=== PATIENT | female | born 1985 | race Caucasian/White ===

== ENCOUNTER → 2018-05-18 | Outpatient (CLI) | payer SELFPAY ==
--- NOTE | 2018-05-18 15:13 | RADIOLOGY REPORT (SQ) ---
EXAM DESCRIPTION: U/S [id number] TRNABD 1GES W/ODOP COMPLETED DATE/TIME: 05/18/2018 2:42 pm REASON FOR STUDY: Z34.81 ENCOUNTER FOR SUPRVSN OF NORMAL , FIRST TRIMESTER Z34.81 ENCOUNTE R FOR SUPRVSN OF NORMAL , FIRST TRIM COMPARISON: None. TECHNIQUE: Transabdominal static and realtime grayscale images acquired of the pelvis. Additional se lected spectral and color Doppler images recorded. All images stored on PACs. bHCG: Not available LIMITATIONS: None. FINDINGS: FETUS: Living intrauterine . ULTRASOUND EGA: 8 weeks 3 days ULTRASOUND JEET: 12/25/2018 CRL: Visualized FHR: 173 beats per minute. SUBCHORIONIC BLEED: No SIZE OF BLEED: Not applicable. UTERUS: No masses. No anomalies. CERVICAL LENGTH: 4.8 cm Closed. RIGHT ADNEXA: Normal ovary with normal vascular flow. Small cyst is identified measuring 1.3 x 1.6 x 1.9 cm in diameters most consistent with a corpus lutein cysts. No adnexal free fluid. No adnexal masses. LEFT ADNEXA: Normal ovary with normal vascular flow. No adnexal free fluid. No adnexal masses. FREE FLUID: None. OTHER: No other significant finding. IMPRESSION: LIVING INTRAUTERINE . EGA 8 weeks 3 days Trimester of : First - 0 to 13 weeks. TECHNICAL DOCUMENTATION: JOB ID: [id number] [employer]- All Rights Reserved rev-03/24 Reading location - IP/workstation name: [email or web address]
== END ==
LOC: RAD 15:46
PROVIDERS: ATTEND Nurse Practitioner Women's Health
DX: O34.81 Maternal care for other abnormalities of pelvic organs, first trimester (principal); N83.11 Corpus luteum cyst of right ovary; Z3A.08 8 weeks gestation of pregnancy
CPT/HCPCS: 76801

== ENCOUNTER 2018-12-14 04:49 | Inpatient (IN) | payer MEDICAID ==
[~2018-12-14 04:49] MED LIST: PHENYLEPHRINE HCL INJ/PF 10 MG/1 ML SDV ONE
[2018-12-14 05:30] LABS: APPEARANCE,URINE CLOUDY; BILIRUBIN,URINE NEGATIVE (NEGATIVE); COLOR,URINE YELLOW; GLUCOSE, URINE NEGATIVE (NEGATIVE); KETONES,URINE NEGATIVE (NEGATIVE); LEUKOCYTE ESTERASE,URINE NEGATIVE (NEGATIVE); NITRITE,URINE NEGATIVE (NEGATIVE); PROTEIN,URINE 30 mg/dL (NEGATIVE); URINE SPECIFIC GRAVITY 1.012; UROBILINOGEN,URINE NEGATIVE mg/dL (<2.0)
[2018-12-14] MEDS ORDERED: RINGERS SOLUTION,LACTATED 1,000 ML IV PRN ×2 (05:43→07:05)
[2018-12-14 05:54] LABS: URINE AMPHETAMINES SCREEN NEGATIVE; URINE BARBITURATES SCREEN NEGATIVE; URINE BENZODIAZEPINES SCREEN NEGATIVE; URINE COCAINE SCREEN NEGATIVE; URINE MARIJUANA (THC) SCREEN NEGATIVE; URINE METHADONE SCREEN NEGATIVE; URINE PHENCYCLIDINE SCREEN NEGATIVE
[2018-12-14] MEDS ORDERED: AZITHROMYCIN INJ 500 MG VIAL IV ONE ×2 (06:11→06:40)
[2018-12-14] MEDS ORDERED: CITRIC ACID/SODIUM CITRATE ORAL SOLN 15 ML UDCUP PO PRN (06:12)
[2018-12-14 06:27] LABS: ABSOLUTE EOSINOPHILS # (AUTO) 0.1 10^3/uL (0.0-0.6); ABSOLUTE LYMPHOCYTES (AUTO) 2.1 10^3/uL (0.5-4.7); ABSOLUTE MONOCYTES (AUTO) 0.8 10^3/uL (0.1-1.4); ABSOLUTE NEUT (AUTO) 4.7 10^3/uL (1.7-8.2); BASOPHILS % (AUTO) 0.4 % (0-2); EOSINOPHILS % (AUTO) 1.2 % (0-6); HEMATOCRIT 34.2 % (36.0-47.0); HEMOGLOBIN 11.8 g/dL (12.0-15.5); LYMPHOCYTES % (AUTO) 27.2 % (13-45); MEAN CORPUSCULAR HEMOGLOBIN 29.7 pg (27.0-33.4); MEAN CORPUSCULAR HGB CONC 34.6 g/dL (32.0-36.0); MEAN CORPUSCULAR VOLUME 86 fl (80-97); MONOCYTES % (AUTO) 10.6 % (3-13); PLATELET COUNT 159 10^3/uL (150-450); RED BLOOD COUNT 3.99 10^6/uL (3.72-5.28); RED CELL DISTRIBUTION WIDTH 13.3 % (11.5-14.0); SEGMENTED NEUTROPHILS % (AUTO) 60.6 % (42-78); TOTAL CELLS COUNTED % (AUTO) 100 %; WHITE BLOOD COUNT 7.8 10^3/uL (4.0-10.5)
--- NOTE | 2018-12-14 06:33 | Admission Physical ---
Datetime Report Generated by CPN: 12/14/2018 06:32 CURRENT ADMISSION Chief Complaint: Uterine Contractions; Suspected Ruptured Membranes Indication for Induction: Not Applicable Admit Impression : Term, Intrauterine ; Ruptured Membranes Admit Plan: Admit to Unit; Initiate Section Protocol ALLERGIES Medication Allergies: Yes Medication Allergies: Penicillins/SV (12/14/2018) Latex: No Latex Allergies OBSTETRICAL HISTORY EDC: 12/24/2018 00:00 : 2 Para: 1 Term: 1 : 0 SAB: 0 IAB: 0 Ectopic: 0 Livin Cesareans: 1 VBACs: 0 Multiple Births: 0 Gestational Diabetes: No Rh Sensitization: No Incompetent Cervix: No KYLE: No Infertility: No ART Treatment: No Uterine Anomaly: No IUGR: No Hx Previous C/S: Yes Macrosomia: No Hx Loss/Stillborn: No PIH: No Hx : No Placenta Previa/Abruption: No Depression/PP Depression: No PTL/PROM: No Post Hemorrhage: No Current Procedures: Ultrasound; NST Obstetrical History Comments: 2015 for failure to progress a 39 weeks, 8lbs 7oz male G2- current SEE RECORDS Alcohol: No Marijuana : No Cocaine: No Other Illicit Drugs: No Cigarettes: Current Everyday Smoker. [id number] MEDICAL HISTORY Diabetes: No Blood Transfusion: No Pulmonary Disease (Asthma, TB): Yes Breast Disease: No Hypertension: No Plastics Nurse Surgery: No Heart Disease: No Hosp/Surgery: Yes Autoimmune Disorder: No Anesthetic Complications: No Kidney Disease: No Abnormal Pap Smear: No Neuro/Epilepsy: No Psychiatric Disorders: No Other Medical Diseases: No Hepatitis/Liver Disease: No Significant Family History: No Varicosities/Phlebitis: No Trauma/Violence : No Thyroid Dysfunction: No Medical History Comments: asthma INFECTIOUS HISTORY Gonorrhea: No Genital Herpes: No Chlamydia: No Tuberculosis: No Syphilis: No Hepatitis: No HIV/AIDS Exposure: No Rash or Viral Illness: No HPV: No PHYSICAL EXAM General: Normal HEENT: Normal Neurologic: Normal Thyroid: Normal Heart: Normal Lungs: Normal Breast: Deferred Back: Normal Abdomen: Normal Genitourinary Exam: Normal Extremities: Normal DTRs: Normal Pelvic Type: Adequate Vital Signs: Reviewed VAGINAL EXAM Dilatation: 2 Effacement: 0 Station: -2 MEMBRANES Pooling: Positive Membranes: Ruptured FETUS A EGA: 38.4 Monitoring: External US FHR- Baseline: 140 Variability: Moderate 6-25bpm Decelerations: None FHR Category: Category I Presentation: Vertex Admit Comment: EFW 7-8 lbs PLANS FOR LABOR AND DELIVERY Benefit of Breast Feed Discussed: Yes INFORMED CONSENT Signature: with User ID: Landry
[2018-12-14] MEDS ORDERED: CITRIC ACID/SODIUM CITRATE ORAL SOLN 15 ML UDCUP ONE (06:40)
[2018-12-14] MEDS ORDERED: PROMETHAZINE HCL INJ 25 MG/1 ML VIAL IV PRN (07:05)
[2018-12-14] MEDS ORDERED: MEASLES,MUMPS&RUBELLA VACC/PF 0.5 ML VIAL SUBCUT PRN (07:05)
[2018-12-14] MEDS ORDERED: OXYTOCIN/NORMAL SALINE 20 UNIT/1,000 ML RTUINJ IV PRN (07:05)
[2018-12-14] MEDS ORDERED: ACETAMINOPHEN 1,000 MG/100 ML RTUPB IV PRN (07:05)
[2018-12-14] MEDS ORDERED: DIPH/PERTUSS(ACELL)/TETANUS VAC/PF 0.5 ML SYR (>=10YO) IM PRN (07:05)
[2018-12-14] MEDS ORDERED: OXYCODONE-ACETAMINOPHEN 5-325 MG TABLET PO PRN (07:05)
[2018-12-14] MEDS ORDERED: ACETAMINOPHEN 325 MG TABLET PO PRN (07:05)
[2018-12-14] MEDS ORDERED: SIMETHICONE 80 MG TAB.CHEW PO PRN (07:05)
[2018-12-14] MEDS ORDERED: FENTANYL CITRATE INJ/PF 100 MCG/2 ML AMPUL ONE (07:23)
[2018-12-14] MEDS ORDERED: OXYTOCIN 10 UNIT/ML VIAL ONE (07:23)
[2018-12-14] MEDS ORDERED: KETOROLAC TROMETHAMINE INJ/PF 30 MG/1 ML SDV ONE (07:23)
[2018-12-14] MEDS ORDERED: MIDAZOLAM 2 MG/2 ML INJ ONE (07:23)
[2018-12-14] MEDS ORDERED: EPHEDRINE SULFATE INJ 50 MG/1 ML AMPULE ONE (07:23)
[2018-12-14] MEDS ORDERED: OXYTOCIN/NORMAL SALINE 20 UNIT/1,000 ML RTUINJ ONE (07:24)
[2018-12-14] MEDS ORDERED: ACETAMINOPHEN 1,000 MG/100 ML RTUPB IV ONE (07:24)
[2018-12-14] MEDS ORDERED: ONDANSETRON HCL INJ/PF 4 MG/2 ML SDV ONE (07:24)
--- NOTE | 2018-12-14 08:43 | Operative Report ---
Operative Report DATE OF SURGERY: 12/14/18 PREOPERATIVE DIAGNOSIS: Patient desires a repeat and tubal ligation w ith Filshie clips POSTOPERATIVE DIAGNOSIS: Same OPERATION: Repeat via low transverse uterine incision and Filshie clip tubal ligation SURGEON: FAVIO COVINGTON ANESTHESIA: Spinal TISSUE REMOVED OR ALTERED: Placenta COMPLICATIONS: Dense pelvic adhesions ESTIMATED BLOOD LOSS: 250 cc INTRAOPERATIVE FINDINGS: Viable male, dense pelvic adhesions to the lower uterine segment PROCEDURE: Patient was taken to the OR and placed in supine position after her spinal anesthesia. She is prepared and draped in sterile fashion. Pritchett was placed for drainage of the bladder. Low transverse incision was made and carried down the level of the fascia. The fascial incision was made with knife and extended bilaterally with curved Garcia scissors. The fascia was off the rectus muscles using sharp and blunt dissection. The rectus muscles are in the midline. There was dense scarring at the lower uterine segment and no real peritoneal reflection noted. The uterus was entered without injury to the bladder. The uterine incision was extended with fingertips. The baby was delivered with some fundal pressure. Mouth and nose were suctioned free. The c ord is doubly clamped and cut. Baby is passed off to the slot tag inserter in attendance. The placenta was manually extracted with trailing membranes. The uterus was externalized wrapped in a moist lap sponge. Uterine contents wiped free. Uterus was closed with a running locking layer of 0 chromic suture using the second layer to imbricate the first completing a double layer closure of the uterus. The fallopian tubes were ligated with Filshie clips placed at each mid isthmic portion. The pelvis was irrigated and suctioned free of fluid the uterus was replaced in the abdomen. The abdominal wall peritoneum was closed with running 2-0 chromic stitch. Fascia was closed with a running 0 Vicryl in 2 segments. Eliana's layer was brought together with 0 plain gut stitch and the skin was closed with running subcuticular 4-0 undyed Vicryl stitch. The wound was dressed mother and baby did well.
[2018-12-14] MEDS ORDERED: MEPERIDINE HCL/PF INJ 25 MG/1 ML DISP.SYRIN ONE (08:45)
[2018-12-14] MEDS ORDERED: HYDROMORPHONE HCL INJ/PF 2 MG/ML AMPULE ONE (09:55)
[2018-12-14] MEDS: HYDROMORPHONE HCL INJ/PF 2 MG/ML AMPULE IV PRN ×2 (10:06→13:01)
[2018-12-14] MEDS: DOCUSATE SODIUM 100 MG CAPSULE PO SCH ×2 (12:36→17:38)
[2018-12-14] MEDS: PRENATAL VITAMIN W DHA CAPSULE PO SCH (12:37)
[2018-12-14] MEDS: KETOROLAC TROMETHAMINE INJ/PF 30 MG/1 ML SDV IV SCH ×2 (17:39→23:10)
[2018-12-14] MEDS: OXYCODONE-ACETAMINOPHEN 5-325 MG TABLET PO PRN ×2 (17:40→23:11)
[2018-12-15] MEDS: OXYCODONE-ACETAMINOPHEN 5-325 MG TABLET PO PRN ×3 (06:34→20:08)
[2018-12-15 07:04] LABS: HEMATOCRIT 31.1 % (36.0-47.0); HEMOGLOBIN 10.7 g/dL (12.0-15.5); MEAN CORPUSCULAR HEMOGLOBIN 29.8 pg (27.0-33.4); MEAN CORPUSCULAR HGB CONC 34.3 g/dL (32.0-36.0); MEAN CORPUSCULAR VOLUME 87 fl (80-97); PLATELET COUNT 150 10^3/uL (150-450); RED BLOOD COUNT 3.57 10^6/uL (3.72-5.28); RED CELL DISTRIBUTION WIDTH 13.3 % (11.5-14.0); WHITE BLOOD COUNT 9.1 10^3/uL (4.0-10.5)
--- NOTE | 2018-12-15 09:55 | PDOC PROGRESS REPORT ---
Subjective-OB Progress Note for:: 12/15/18 Physical Exam (OB) Vital Signs: Temp Pulse Resp BP Pulse Ox 97.8 F 68 16 116/61 97 12/15/18 07:32 12/15/18 07:32 12/15/18 07:32 12/15/18 07:32 12/15/18 07:32 Intake & Output 12/14/18 12/15/18 12/16/18 06:59 06:59 06:59 Intake Total 300 Output Total 900 Balance -600 Weight 92.1 kg - PIH/Pre-Eclampsia DTR's: 1 + Clonus: Negative Headache: Absent Epigastric Pain: No Visual Changes: No - Dressing Removed: No - opsite intact Incision: Dressing Closure Type: Sutures - Lochia Lochia Amount: Scant < 10 ml Lochia Color: Rubra/Red - Abdomen Description: Tender, Soft, Round Hernia Present: No Bowel Sounds: Normoactive Flatus Presence: Present Stool: No Fundal Description: Firm, Midline Fundal Height: u/u - u/2 Objective-Diagnostic Laboratory: 12/15/18 06:48 12/15/18 06:48 WBC 9.1 RBC 3.57 L Hgb 10.7 L Hct 31.1 L MCV 87 MCH 29.8 MCHC 34.3 RDW 13.3 Plt Count 150
[2018-12-15] MEDS: DOCUSATE SODIUM 100 MG CAPSULE PO SCH ×2 (10:41→17:33)
[2018-12-15] MEDS: PRENATAL VITAMIN W DHA CAPSULE PO SCH (10:42)
[2018-12-15] MEDS: IBUPROFEN 800 MG TABLET PO SCH ×2 (11:26→17:33)
[2018-12-15] MEDS: KETOROLAC TROMETHAMINE INJ/PF 30 MG/1 ML SDV IV SCH ×2 (15:19→22:07)
[2018-12-16] MEDS: IBUPROFEN 800 MG TABLET PO SCH ×3 (00:10→12:03)
[2018-12-16] MEDS: OXYCODONE-ACETAMINOPHEN 5-325 MG TABLET PO PRN (03:43)
[2018-12-16] MEDS: KETOROLAC TROMETHAMINE INJ/PF 30 MG/1 ML SDV IV SCH (09:26)
[2018-12-16] MEDS: DOCUSATE SODIUM 100 MG CAPSULE PO SCH (09:28)
[2018-12-16] MEDS: PRENATAL VITAMIN W DHA CAPSULE PO SCH (09:28)
--- NOTE | 2018-12-16 09:28 | PDOC PROGRESS REPORT ---
Subjective-OB Progress Note for:: 12/16/18 Subjective: Ready to go home. Physical Exam (OB) Vital Signs: Temp Pulse Resp BP Pulse Ox 97.7 F 86 18 125/70 99 12/16/18 03:48 12/16/18 03:48 12/16/18 03:48 12/16/18 03:48 12/16/18 03:48 Intake & Output 12/15/18 12/16/18 12/17/18 06:59 06:59 06:59 Intake Total 300 1200 Output Total 900 Balance -600 1200 - PIH/Pre-Eclampsia DTR's: 1 + Clonus: Negative Headache: Absent Epigastric Pain: No Visual Changes: No - Dressing Removed: No - opsite Incision: Dressing Closure Type: Sutures - Lochia Lochia Amount: Scant < 10 ml Lochia Color: Rubra/Red - Abdomen Description: Tender Hernia Present: No Bowel Sounds: Normoactive Flatus Presence: Present Stool: No Fundal Description: Firm, Midline Fundal Height: u/u - u/2 Objective-Diagnostic Laboratory: 12/15/18 06:48
--- NOTE | 2018-12-16 09:38 | PDOC DISCHARGE SUMMARY ---
Final Diagnosis Discharge Date: 12/16/18 - Final Diagnosis (1) Delivery by elective caesarean section Is this a current diagnosis for this admission?: Yes (2) Is this a current diagnosis for this admission?: Yes (3) Spontaneous rupture of membranes Is this a current diagnosis for this admission?: Yes Discharge Data - Discharge Medication Prescriptions: Oxycodone HCl/Acetaminophen [Percocet 5-325 mg Tablet] 1 tab PO Q4HP PRN #20 tablet PRN Reason: Docusate Sodium [Colace 100 mg Capsule] 100 mg PO BID #30 capsule Ibuprofen [Motrin 800 mg Tablet] 800 mg PO Q6 #30 tablet Home Medications: Vit/Iron Fum/Folic AC [ Tablet] 1 tab PO DAILY 02/29/16 Docusate Sodium [Colace 100 mg Capsule] 100 mg PO BID #30 capsule 12/16/18 Ibuprofen [Motrin 800 mg Tablet] 800 mg PO Q6 #30 tablet 12/16/18 Oxycodone HCl/Acetaminophen [Percocet 5-325 mg Tablet] 1 tab PO Q4HP PRN #20 tablet 12/16/18 Gestational Age: 38.4 wks Reason(s) for Admission: PROM Procedures: Ultrasound Intrapartum Procedure(s): : Low Cervical, Transverse - Data Baby 1 Male at 1 minute: 8 at 5 minutes: 9 Weight: 3.685 kg Home with Mother: Yes Complications: No - Diagnosis Test Laboratory: Temp Pulse Resp BP Pulse Ox 98.1 F 73 18 117/65 97 12/16/18 07:50 12/16/18 07:50 12/16/18 07:50 12/16/18 07:50 12/16/18 07:50 12/14/18 12/14/18 12/15/18 05:07 06:03 06:48 RBC 3.99 3.57 L Hgb 11.8 L 10.7 L Hct 34.2 L 31.1 L Urine Opiates Screen NEGATIVE - Discharge information/Instructions Discharge Activity: Activity As Tolerated, Balance Activity w/Rest, No Lifting Over 10 Pounds, No Lifting/Push/Pulling, Non-Ambulatory Child, Pelvic Rest, Slowly Increase Activity, No tub bath Discharge Diet: Regular Disposition: HOME, SELF-CARE Follow up with: [facility] in: 1, Weeks
[2018-12-16 13:53] VITALS: BP 127/81
--- NOTE | 2018-12-21 11:00 | Delivery Summary ---
Del Sum A-C Datetime Report Generated by CPN: 12/21/2018 10:59 DELIVERY PERSONNEL DELIVERY PERSONNEL: [id number] Delivery Doctor:: Nicko Murdock MD Delivery Doctor:: Gabby Rivas MD Anesthesiologist:: Devonte Ugalde MD Anesthesiologist:: Devonte Ugalde MD RELIEF MASTER:: Javid Hloloway CRNA RELIEF MASTER:: Javid Holloway CRNA Labor and Delivery Nurse:: Daniel Wheat RN Store Team Leader:: Daniel Wheat RN Store Team Leader:: Daniel Wheat RN Neonatal Nurse Practitioner:: MOON Faulkner Nursery Nurse:: Jyothi Butler LPN Substation Manager/HEATING EQUIPMENT INSTALLER: ST Nasreen Substation Manager/HEATING EQUIPMENT INSTALLER: ST Nasreen Substation Manager/HEATING EQUIPMENT INSTALLER: ST Sergei Substation Manager/HEATING EQUIPMENT INSTALLER: ST Sergei MATERNAL INFORMATION Delivery Anesthesia: Spinal Medications After Delivery: Pitocin Drip 20 Units/1000ml NSS Meds After Delivery Comment: additional 20units pitocin in 1000ml NS Maternal Complications: None LABOR SUMMARY EDC: 12/24/2018 00:00 No. Babies in Womb: 1 Attempted: No Labor Anesthesia: None LABOR INFORMATION Reason for Induction: Not Applicable Onset of Labor: 12/14/2018 03:00 Oxytocin: N/A Group B Beta Strep: Negative Antibiotics # of Doses: 1 Antibiotics Time of Last Dose: 724 Name of Antibiotic Given: zithromax Steroids Given: None Reason Steroids Not Administered: Not Applicable MEMBRANES Membranes Rupture Method: Spontaneous Rupture of Membranes: 12/14/2018 03:00 Length of Rupture (hr): 4.93 Amniotic Fluid Color: Clear Amniotic Fluid Odor: Normal STAGES OF LABOR Stage 3 hr: 0 Stage 3 min: 1 Total Time in Labor hr: 4 Total Time in Labor min: 57 VAGINAL DELIVERY Episiotomy: None Laceration #1: None Laceration Extension #1: N/A Laceration Repair: Not Applicable Sponge Count Correct: Yes CSECTION DELIVERY Primary Indication: Repeat Elective Secondary Indication: N/A CSection Urgency: Non-Scheduled CSection Incidence: Repeat Labor: Labor Elective: Elective CSection Incision: Lower Uterine Transverse Other Sterilization Procedure: flishe clips BABY A INFORMATION Infant Delivery Date/Time: 12/14/2018 07:56 Method of Delivery: Born in Route : No : N/A Forceps: N/A Vacuum Extraction: Successful Shoulder Dystocia : No PRESENTATION/POSITION BABY A Presentation: Cephalic Cephalic Presentation: Vertex Vertex Position: n/a Breech Presentation: N/A PLACENTA INFORMATION BABY A Placenta Delivery Time : 12/14/2018 07:57 Placenta Method of Delivery: Manual Removal Placenta Status: Delivered SCORES BABY A Heart Rate 1 min: >100 bpm Resp Effort 1 min: Good Cry Reflex Irritability 1 min: Cough or Sneeze or Pulls Away Muscle Tone 1 min: Active Motion Color 1 min: Blue/Pale SCORE 1 MIN: 8 Heart Rate 5 min: >100 bpm Resp Effort 5 min: Good Cry Reflex Irritability 5 min: Cough or Sneeze or Pulls Away Muscle Tone 5 min: Active Motion Color 5 min: Body [place], Extremities Blue SCORE 5 MIN: 9 INFANT INFORMATION BABY A Gestational Age at Delivery: 38.4 Gestational Status: Early Term- 37- 38.6 Weeks Outcome : Liveborn Condition : Stable Infant Sex: Male IDENTIFICATION BABY A Verification Date/Time: 12/14/2018 07:59 ID Band Number: [id number] Mother's Name Verified: Yes Infant RN Verifying : jSimon padillaard/ rSimon nilson WEIGHT/LENGTH BABY A Infant Birthweight (gm): 3685 Infant Weight (lb): 8 Infant Weight (oz): 2 Infant Length (in): 20.00 Length (cm): 50.80 CORD INFORMATION BABY A No. Cord Vessels: 3 Nuchal Cord : Around Neck x1, Loose Cord Blood Taken: Yes-For Eval (Mom's Blood Type - or O+) Suction: None ASSESSMENT BABY A Skin to Skin: Yes
== END 2018-12-16 14:15 | disposition home or self-care (01) | DRG 785 ==
LOC: LC 04:49 → LR 05:46 → 2N 10:50
PROVIDERS: ADMIT Obstetrics & Gynecology; ATTEND Obstetrics & Gynecology
PROC: 10D00Z1 Extraction of Products of Conception, Low, Open Approach (ICD-10-PCS; principal; 2018-12-14)
PROC: 0UL70CZ Occlusion of Bilateral Fallopian Tubes with Extraluminal Device, Open Approach (ICD-10-PCS; 2018-12-14)
PROC: 4A1HXCZ Monitoring of Products of Conception, Cardiac Rate, External Approach (ICD-10-PCS; 2018-12-14)
DX: O34.211 Maternal care for low transverse scar from previous cesarean delivery (principal); O99.334 Smoking (tobacco) complicating childbirth; O69.81X0 Labor and delivery complicated by cord around neck, without compression, not applicable or unspecified; Z30.2 Encounter for sterilization; F17.200 Nicotine dependence, unspecified, uncomplicated; Z37.0 Single live birth; Z88.0 Allergy status to penicillin; Z3A.38 38 weeks gestation of pregnancy
CPT/HCPCS: 1961; 36415; 80307; 81005; 84112; 85025; 85027; 86592; 86850; 86900; 86901; 94799; J0131; J0456; J1170; J1885; J2175; J2250; J2370; J2405; J2550; J2590; J3010; J3490

== ENCOUNTER 2019-05-05 03:09 | Emergency (ER) | payer SELFPAY ==
[2019-05-05] MEDS ORDERED: HYDROMORPHONE HCL INJ/PF 2 MG/ML AMPULE IV ONE (03:33)
[2019-05-05] MEDS ORDERED: ONDANSETRON HCL INJ/PF 4 MG/2 ML SDV IV ONE (03:33)
[2019-05-05] MEDS ORDERED: NORMAL SALINE 1000 ML 1,000 ML IV ONE (03:34)
[2019-05-05 03:36] LABS: ABSOLUTE BASOPHILS # (AUTO) 0.2 10^3/uL (0.0-0.2); ABSOLUTE EOSINOPHILS # (AUTO) 0.2 10^3/uL (0.0-0.6); ABSOLUTE LYMPHOCYTES (AUTO) 2.5 10^3/uL (0.5-4.7); ABSOLUTE MONOCYTES (AUTO) 0.8 10^3/uL (0.1-1.4); ABSOLUTE NEUT (AUTO) 10.6 10^3/uL (1.7-8.2); BASOPHILS % (AUTO) 1.1 % (0-2); EOSINOPHILS % (AUTO) 1.4 % (0-6); HEMATOCRIT 42.8 % (36.0-47.0); HEMOGLOBIN 14.6 g/dL (12.0-15.5); LYMPHOCYTES % (AUTO) 17.5 % (13-45); MEAN CORPUSCULAR HEMOGLOBIN 29.3 pg (27.0-33.4); MEAN CORPUSCULAR HGB CONC 34.2 g/dL (32.0-36.0); MEAN CORPUSCULAR VOLUME 86 fl (80-97); MONOCYTES % (AUTO) 5.4 % (3-13); PLATELET COUNT 242 10^3/uL (150-450); RED BLOOD COUNT 4.99 10^6/uL (3.72-5.28); RED CELL DISTRIBUTION WIDTH 14.1 % (11.5-14.0); SEGMENTED NEUTROPHILS % (AUTO) 74.6 % (42-78); TOTAL CELLS COUNTED % (AUTO) 100 %; WHITE BLOOD COUNT 14.1 10^3/uL (4.0-10.5)
[2019-05-05 03:52] LABS: APPEARANCE,URINE CLOUDY; BILIRUBIN,URINE NEGATIVE (NEGATIVE); COLOR,URINE YELLOW; GLUCOSE, URINE NEGATIVE (NEGATIVE); KETONES,URINE NEGATIVE (NEGATIVE); LEUKOCYTE ESTERASE,URINE NEGATIVE (NEGATIVE); NITRITE,URINE NEGATIVE (NEGATIVE); PROTEIN,URINE 100 mg/dL (NEGATIVE); URINE SPECIFIC GRAVITY 1.015; UROBILINOGEN,URINE NEGATIVE mg/dL (<2.0)
[2019-05-05 03:57] LABS: ALANINE AMINOTRANSFERASE 27 U/L (9-52); ALBUMIN 4.7 g/dL (3.5-5.0); ALKALINE PHOSPHATASE 105 U/L (38-126); ANION GAP 12 (5-19); ASPARTATE AMINO TRANSFERASE 25 U/L (14-36); BILIRUBIN,DIRECT 0.2 mg/dL (0.0-0.4); BILIRUBIN,TOTAL 0.9 mg/dL (0.2-1.3); BLOOD UREA NITROGEN 10 mg/dL (7-20); CALCIUM 10.5 mg/dL (8.4-10.2); CARBON DIOXIDE 24 mmol/L (22-30); CHLORIDE 105 mmol/L (98-107); GLUCOSE 102 mg/dL (75-110); POTASSIUM 4.2 mmol/L (3.6-5.0); SODIUM 140.7 mmol/L (137-145); TOTAL PROTEIN 7.7 g/dL (6.3-8.2)
[2019-05-05] MEDS ORDERED: KETOROLAC TROMETHAMINE INJ/PF 30 MG/1 ML SDV IV ONE (05:26)
--- NOTE | 2019-05-05 06:08 | RADIOLOGY REPORT (SQ) ---
EXAM DESCRIPTION: CT ABDOMEN PELVIS WITHOUT IV CONTRAST COMPLETED DATE/TME: 05/05/2019 05:26 CLINICAL HISTORY: 33 years, Female, right flank pain, hematuria Comparison: None TECHNIQUE: Contiguous axial CT images of the abdomen and pelvis were obtained. Sagittal and coronal reformats were reviewed. This exam was performed according to our departmental dose-optimization program, which includes automated exposure control, adjustment of the mA and/or kV according to patient size and/or use of iterative reconstruction technique. FINDINGS: Lung bases: Clear. Liver:Unremarkable. No focal liver lesion. Gallbladder:Unremarkable. No gallstones. No gallbladder wall thickening or pericholecystic fluid. Spleen:Unremarkable Pancreas: Pancreas is unremarkable. Adrenal glands:Within normal limits. Kidneys/ureters: Right hydronephrosis and hydroureter secondary to a 5 mm calculus at the ureteropelvic junction. There are additional 2 to 3 mm right renal calculi. Multiple 2 to 4 mm left renal calculi. No hydronephrosis on the left. Stomach/small bowel/colon: Stomach is unremarkable. Small bowel is unremarkable. Colon is unremarkable. Appendix: No evidence of appendicitis. Peritoneum: No free fluid. Vascular structures: within normal limits Lymph nodes: No abnormal lymph nodes. Bladder:Unremarkable. Pelvic organs: No acute abnormality. Tubal ligation clips are noted. Bones: No acute osseous abnormality. Soft tissues: Unremarkable.. IMPRESSION: Obstructive right ureteral pelvic junction calculus measuring approximately 5 x 6 mm. Additional nonobstructive bilateral nephrolithiasis.
--- NOTE | 2019-05-05 06:45 | ER Document Report ---
Entered by BRADLEY RING SCRIBE 05/05/19 0509 Acting as scribe for:NARDA DAVALOS DO ED General - General Chief Complaint: Abdominal Pain Stated Complaint: BACK AND STOMACH PAIN Time Seen by Provider: 05/05/19 03:33 Primary Care Provider: TOYA SESAY NP [NO LOCAL MD] - Follow up as needed Mode of Arrival: Ambulatory Information source: Patient Notes: Patient is a 33 year old female presenting to the emergency department complaining right lower back pain and abdominal pain onset approximately 1 hr prior to arrival. Patient states the pain was onset suddenly and reports it radiates into the right side of her abdomen. She states she initially attributed the pain to a muscle spasm and proceeded to take a muscle relaxer. She states she has a history of 1 kidney stone and reports her current symptoms feel similar to a prior kidney infection. She also complains of nausea and 1 episode of vomiting. She denies any food or liquid consumption within the last few hours. TRAVEL OUTSIDE OF THE [place] IN LAST 30 DAYS: No - Related Data Allergies/Adverse Reactions: Penicillins Allergy (Severe, Verified 05/05/19 03:27) Past Medical History - General Information source: Patient - Social History Smoking Status: Current Every Day Smoker Cigarette use (# per day): No - Vapes Chew tobacco use (# tins/day): No Smoking Education Provided: No Frequency of alcohol use: Occasional Drug Abuse: None Family History: Reviewed & Not Pertinent Pulmonary Medical History: Reports: Hx Asthma - Immunizations Hx Diphtheria, Pertussis, Tetanus Vaccination: Yes - given today Review of Systems - Review of Systems Constitutional: No symptoms reported EENT: No symptoms reported Cardiovascular: No symptoms reported Respiratory: No symptoms reported Gastrointestinal: See HPI, Abdominal pain Genitourinary: No symptoms reported Female Genitourinary: No symptoms reported Musculoskeletal: See HPI Skin: No symptoms reported Hematologic/Lymphatic: No symptoms reported Neurological/Psychological: No symptoms reported -: Yes All other systems reviewed and negative Physical Exam - Vital signs Vitals: Temp Pulse Resp BP Pulse Ox 98 F 100 26 H 123/79 100 05/05/19 03:14 05/05/19 03:14 05/05/19 03:14 05/05/19 03:14 05/05/19 03:14 - Notes Notes: GENERAL: Alert, appears uncomfortable, writhing in bed. HEAD: Normocephalic, atraumatic. EYES: Pupils equal, round, and reactive to light. Extraocular movements intact. ENT: Oral mucosa moist, tongue midline. NECK: Full range of motion. Supple. Trachea midline. LUNGS: Clear to auscultation bilaterally, no wheezes, rales, or rhonchi. No respiratory distress. HEART: Regular rate and rhythm. No murmurs, gallops, or rubs. ABDOMEN: Soft, RUQ tenderness to palpation. Apprehensive during examination, difficult to tell if there is a positive He's sign. Non-distended. Bowel sounds present in all 4 quadrants. No guarding, rigidity, or rebound. EXTREMITIES: Moves all 4 extremities spontaneously. NEUROLOGICAL: Alert and oriented x3. Normal speech. PSYCH: Appears uncomfortable, writhing in bed. SKIN: Warm, dry, normal turgor. No rashes or lesions noted. BACK: Erythema to the right CVA and lower back consistent with heating pad usage. No CVA tenderness to percussion. Course - Re-evaluation Re-evalutation: 05/05/19 06:43 CBC shows leukocytosis CMP unremarkable, lipase normal, test negative, urinalysis shows large blood but no signs of infection. CT scan of the abdomen pelvis shows a 5 mm calculus at the right ureteropelvic junction with hydronephrosis and hydroureter. There is no sign of infection. Patient will be treated symptomatically and discharged home asked to follow-up with urology. - Vital Signs Vital signs: Temp Pulse Resp BP Pulse Ox 98 F 100 26 H 123/79 100 05/05/19 03:14 05/05/19 03:14 05/05/19 03:14 05/05/19 03:14 05/05/19 03:14 - Laboratory Result Diagrams: 05/05/19 03:20 05/05/19 03:20 Laboratory results interpreted by me: 05/05/19 05/05/19 05/05/19 03:20 03:20 03:20 WBC 14.1 H RDW 14.1 H Absolute Neutrophils 10.6 H Calcium 10.5 H Urine Protein 100 H Urine Blood LARGE H Discharge - Discharge Clinical Impression: Right ureteral calculus, Hydronephrosis, right Condition: Stable Disposition: HOME, SELF-CARE Additional Instructions: Kidney Stone You are passing or have passed a kidney stone. These stones are usually due to increased calcium or uric acid concentrations in your urine. Stones within the kidney itself are not painful. The pain occurs as the stone leaves the kidney to pass down the long tube, called the ureter, leading to the bladder. If the stone is small, it will usually pass by itself. Most patients can pass the stone at home. You will usually receive medications for pain, nausea or vomiting, and sometimes a medication to assist in passing the kidney stone. However, if the pain is very severe or if vomiting prevents you from taking oral pain medications, you may need to return for further treatment. Drink three or four quarts of fluids per day. You will be given pain medication (if needed) and urine strainers. Strain all your urine to see if the stone passes. If your doctor has asked you to bring the stone in for analysis, return with the stone once it has passed. Return if pain or vomiting become severe, if you develop a high fever, if you are unable to pass your urine, or if other unusual symptoms occur. Please take ibuprofen 800 mg every 8 hours to help decrease your pain. If you continue to have pain despite taking this medication you may use the Percocet 1 tablet every 4 hours as needed for severe breakthrough pain. I have also prescribed you Zofran and Phenergan to help with the nausea. You should also take Pyridium, this is the same thing as Azo which is available [id number], it will help to numb your kidneys, ureters and bladder to decrease the pain as the stone moves. Finally we have prescribed Flomax, typically this is used to treat prostate problems but in this case may use it to help expand your ureters to help the kidney stone will pass more quickly. Please return to the emergency department for worsening pain, temperature of 100.4 greater or any new or concerning symptoms. Narcotics such as Percocet or [place] can cause constipation and nausea. Please use MiraLAX 1 scoop dissolved in a glass of water once a day while taking narcotics to decrease the risk of constipation. They can also cause nausea, please take them with food. Do not drive while taking narcotics. Prescriptions: Ondansetron [Zofran Odt 4 mg Tablet] 1 - 2 tab PO Q4HP PRN #10 tab.rapdis PRN Reason: Oxycodone HCl/Acetaminophen [Percocet 5-325 mg Tablet] 1 - 2 tab PO Q4H PRN #15 tablet PRN Reason: Phenazopyridine HCl [Pyridium 200 mg Tablet] 200 mg PO TID #15 tablet Promethazine HCl [Phenergan 25 mg Tablet] 25 - 50 mg PO ASDIR PRN #12 tablet PRN Reason: Tamsulosin HCl [Flomax 0.4 mg Cap.sr] 0.4 mg PO DAILY #7 cap.sr.24h Referrals: TOYA SESAY NP [NO LOCAL MD] - Follow up as needed JU LUNA MD [NO LOCAL MD] - Follow up as needed I personally performed the services described in the documentation, reviewed and edited the documentation which was dictated to the scribe in my presence, and it accurately records my words and actions.
[2019-05-05 07:08] VITALS: BP 112/71
== END 2019-05-05 07:10 | disposition home or self-care (01) ==
LOC: ER 03:09
DX: N13.2 Hydronephrosis with renal and ureteral calculous obstruction (principal); R10.31 Right lower quadrant pain; M62.838 Other muscle spasm; R11.2 Nausea with vomiting, unspecified; Z79.899 Other long term (current) drug therapy; F17.290 Nicotine dependence, other tobacco product, uncomplicated; J45.909 Unspecified asthma, uncomplicated
CPT/HCPCS: 99284; 96361; 96374; 96375; 36415; 83690; 84703; 85025; 80053; 81001; 74176; J1885; J1170; J2405; J7030

== ENCOUNTER 2019-06-22 03:43 | Emergency (ER) | payer SELFPAY ==
[2019-06-22 03:47] VITALS: BP 137/100
[2019-06-22] MEDS ORDERED: PROMETHAZINE HCL INJ 50 MG/1 ML VIAL IM ONE (04:17)
[2019-06-22] MEDS ORDERED: HYDROMORPHONE HCL INJ/PF 2 MG/ML AMPULE IV ONE ×2 (04:17→05:46)
[2019-06-22] MEDS ORDERED: KETOROLAC TROMETHAMINE INJ/PF 30 MG/1 ML SDV IV ONE (04:18)
[2019-06-22] MEDS ORDERED: NORMAL SALINE 1000 ML 1,000 ML IV ONE (04:18)
[2019-06-22] MEDS ORDERED: ONDANSETRON HCL INJ/PF 4 MG/2 ML SDV IV ONE (04:37)
--- NOTE | 2019-06-22 04:56 | ER Document Report ---
ED GI/ - General Chief Complaint: Possible Kidney Stone Stated Complaint: NAUSEA Time Seen by Provider: 06/22/19 04:30 Notes: 34-year-old female who is otherwise healthy with a recent diagnosis of bilateral multiple renal calculi presents to the emergency department in acute distress with left flank pain that radiates around to her left lower quadrant. Patient states that the symptoms are the same as when she presented on May 05 and was diagnosed with kidney stones. Patient states that she did pass stones in the interval timeline from previous visit. Patient denies any fevers or chills, complains of nausea with no vomiting, complains of left lower quadrant abdominal pain as above, complains of urinary frequency, denies dysuria, denies urinary urgency, denies hematuria. No other complaints TRAVEL OUTSIDE OF THE [place] IN LAST 30 DAYS: No - Related Data Allergies/Adverse Reactions: Penicillins Allergy (Severe, Verified 05/05/19 03:27) Past Medical History - Social History Smoking Status: Unknown if Ever Smoked Family History: Reviewed & Not Pertinent Patient has suicidal ideation: No Patient has homicidal ideation: No Pulmonary Medical History: Reports: Hx Asthma Renal/ Medical History: Denies: Hx Peritoneal Dialysis - Immunizations Hx Diphtheria, Pertussis, Tetanus Vaccination: Yes - given today Review of Systems - Review of Systems Constitutional: See HPI EENT: No symptoms reported Cardiovascular: No symptoms reported Respiratory: No symptoms reported Gastrointestinal: See HPI Genitourinary: See HPI Female Genitourinary: No symptoms reported Musculoskeletal: See HPI Skin: No symptoms reported Hematologic/Lymphatic: No symptoms reported Neurological/Psychological: No symptoms reported Physical Exam - Vital signs Vitals: Temp Pulse Resp BP Pulse Ox 97.5 F 68 17 137/100 H 99 06/22/19 03:46 06/22/19 03:46 06/22/19 03:46 06/22/19 03:46 06/22/19 03:46 - Notes Notes: PHYSICAL EXAMINATION: Reviewed vital signs and charting by RN GENERAL: Alert, interacts well. No acute distress. HEAD: Normocephalic, atraumatic. EYES: Pupils equal and round. Extraocular movements intact. ENT: Oral mucosa moist, tongue midline. NECK: Full range of motion. Trachea midline. LUNGS: Clear to auscultation bilaterally, no wheezes, rales, or rhonchi. No respiratory distress. HEART: Regular rate and rhythm. No murmur ABDOMEN: soft, non-tender. No distention. Bowel sounds present EXTREMITIES: Moves all 4 extremities spontaneously. No edema, No cyanosis. PSYCH: Normal affect, normal mood. SKIN: Warm, dry, normal turgor. No rashes or lesions noted. Course - Re-evaluation Re-evalutation: 06/22/19 04:54 Patient initially in extremis prostrated on the floor of the hospital room in acute pain. She was given Dilaudid 1 mg, Zofran 4 mg and reported quick relief. I suspect patient is most likely passing kidney stone. Plan is to send a urinalysis to ensure she does not have a urinary tract infection and treat symptomatically. 06/22/19 05:47 Urine had small leuk esterase, negative nitrites, 20 WBCs with large blood 7 RBCs. I have sent for culture and I am attributing the WBCs to be blood. At this time I do not believe patient has an infected stone. Plan is to give her another dose of Dilaudid 0.5 mg IV once with a short prescription for Percocet to assist her during the passage of the stones at home. At this time patient is stable for discharge and feeling much, much better. - Vital Signs Vital signs: Temp Pulse Resp BP Pulse Ox 97.5 F 68 17 137/100 H 99 06/22/19 03:46 06/22/19 03:46 06/22/19 03:46 06/22/19 03:46 06/22/19 03:46 - Laboratory Laboratory results interpreted by me: 06/22/19 05:10 Urine Blood MODERATE H Ur Leukocyte Esterase SMALL H Discharge - Discharge Clinical Impression: Kidney stone Condition: Good Disposition: HOME, SELF-CARE Additional Instructions: Your symptoms should improve over the course of the next one week. If you continue to have pain for greater than one week or your pain is not controlled with the pain medications that you have been sent home with you need to return to the emergency department. Please also return if you develop fever, persistent vomiting, or any other symptoms that are concerning to you. You should take ibuprofen 600 mg every 6 hours and use the oral morphine as prescribed only for pain not controlled by ibuprofen. You are also been sent home with a medication called Flomax to help pass the stone. You've been given Zofran to assist with nausea. Please follow-up with urology in the next 2-3 days. Prescriptions: Oxycodone HCl/Acetaminophen [Percocet 5-325 mg Tablet] 1 tab PO Q4H PRN #15 tablet PRN Reason: Phenazopyridine HCl [Pyridium 200 mg Tablet] 200 mg PO TID #15 tablet Promethazine HCl [Phenergan 25 mg Tablet] 25 mg PO Q6H PRN #20 tablet PRN Reason:
[2019-06-22 05:34] LABS: APPEARANCE,URINE SLIGHTLY-CLOUDY; BILIRUBIN,URINE NEGATIVE (NEGATIVE); COLOR,URINE YELLOW; GLUCOSE, URINE NEGATIVE (NEGATIVE); KETONES,URINE NEGATIVE (NEGATIVE); LEUKOCYTE ESTERASE,URINE SMALL (NEGATIVE); NITRITE,URINE NEGATIVE (NEGATIVE); PROTEIN,URINE NEGATIVE (NEGATIVE); URIC ACID CRYSTALS,URINE RARE /HPF; UROBILINOGEN,URINE NEGATIVE mg/dL (<2.0)
== END 2019-06-22 06:20 | disposition home or self-care (01) ==
LOC: ER 03:43
DX: N20.0 Calculus of kidney (principal); Z88.0 Allergy status to penicillin
CPT/HCPCS: 96376; 99284; 96361; 96374; 96375; 81025; 81001; J1885; J1170; J2405; J7030

== ENCOUNTER 2019-08-02 20:57 | Emergency (ER) | payer BC ==
[2019-08-02] MEDS ORDERED: HYDROMORPHONE HCL INJ/PF 2 MG/ML AMPULE IV ONE (21:27)
[2019-08-02] MEDS ORDERED: KETOROLAC TROMETHAMINE INJ/PF 30 MG/1 ML SDV IV ONE (21:27)
[2019-08-02] MEDS ORDERED: NORMAL SALINE 1000 ML 1,000 ML IV ONE (21:28)
[2019-08-02] MEDS ORDERED: ONDANSETRON HCL INJ/PF 4 MG/2 ML SDV IV ONE (21:28)
--- NOTE | 2019-08-02 21:30 | ER Document Report ---
ED GI/ - General Chief Complaint: Possible Kidney Stone Stated Complaint: POSSIBLE KIDNEY STONES Time Seen by Provider: 08/02/19 21:23 Notes: Patient is a 34-year-old female that comes to the emergency department for chief complaint of sudden onset of sharp left flank pain radiating around to her left mid to lower abdomen, symptoms started at about 7 PM tonight. She states she does have a history of kidney stones and this feels the same. She denies vomiting, fever, dysuria, or injury. She states she has always been able to pass the kidney stones, and it has never had a stent or stone removal, she has had a CAT scan somewhat recently and she was told she had multiple stones in her kidneys. She has had a , she denies any medical history otherwise. TRAVEL OUTSIDE OF THE [place] IN LAST 30 DAYS: No - Related Data Allergies/Adverse Reactions: Penicillins Allergy (Severe, Verified 05/05/19 03:27) Past Medical History - General Information source: Patient - Social History Smoking Status: Never Smoker Frequency of alcohol use: None Drug Abuse: None Lives with: Family Family History: Reviewed & Not Pertinent Pulmonary Medical History: Reports: Hx Asthma Renal/ Medical History: Reports: Hx Kidney Stones. Denies: Hx Peritoneal Dialysis - Immunizations Hx Diphtheria, Pertussis, Tetanus Vaccination: Yes - given today Review of Systems - Review of Systems Constitutional: No symptoms reported EENT: No symptoms reported Cardiovascular: No symptoms reported Respiratory: No symptoms reported Gastrointestinal: See HPI Genitourinary: See HPI Female Genitourinary: No symptoms reported Musculoskeletal: No symptoms reported Skin: No symptoms reported Hematologic/Lymphatic: No symptoms reported Neurological/Psychological: No symptoms reported Physical Exam - Vital signs Vitals: Temp Pulse Resp BP Pulse Ox 98.0 F 86 20 111/69 98 08/02/19 21:08 08/02/19 21:08 08/02/19 21:08 08/02/19 21:08 08/02/19 21:08 - Notes Notes: GENERAL: Patient distressed, appears very uncomfortable, restless HEAD: Normocephalic, atraumatic. EYES: Pupils equal, round, and reactive to light. Extraocular movements intact. ENT: Oral mucosa moist, tongue midline. Oropharynx unremarkable. Airway patent. LUNGS: Clear to auscultation bilaterally, no wheezes, rales, or rhonchi. No respiratory distress. HEART: Regular rate and rhythm. No murmur ABDOMEN: Left-sided abdominal tenderness in the lower abdomen. Remaining abdomen is benign. No guarding or rigidity. GENITOURINARY: Deferred EXTREMITIES: Moves all 4 extremities spontaneously. No edema, normal radial and dorsalis pedis pulses bilaterally. No cyanosis. BACK: No CVA tenderness. No cervical, thoracic, lumbar midline tenderness. No saddle anesthesia, normal distal neurovascular exam. Moves all extremities in full range of motion. NEUROLOGICAL: Alert and oriented x3. Normal speech. Cranial nerves II through XII grossly intact. PSYCH: Slightly agitated SKIN: Warm, dry, normal turgor. No rashes or lesions noted. Course - Re-evaluation Re-evalutation: Patient initially looks very uncomfortable, restless, difficulty holding still, with pain over the left lower abdomen. There is no CVA tenderness. She is not febrile, vital signs are unremarkable. Patient was medicated. CBC unremarkable, chemistry unremarkable, renal functioning normal. test is negative. Urinalysis is very contaminated unfortunately. On reevaluation patient is still uncomfortable, she was remedicated. I disc ussed work-up with patient, decision was made to perform a catheterized urinary sample to confirm if this is an infection. Catheterized sample does appear infected, CAT scan was performed to rule out infected ureterolithiasis, however CAT scan showed nephrolithiasis without hydronephrosis, there is no ureterolithiasis noted at all. On reevaluation patient symptoms have resolved. I discussed options with patient. Because patient is so well-appearing now, her vital signs are unremarkable, she does not have an obstructed ureterolithiasis, she will be treated with antibiotics, it is possible she already passed the stone. She will be referred to local urology, placed on antibiotics, provided with symptom management, and she was given return precautions which were discussed in detail. Patient states understanding and agreement with plan. Stable at time of discharge. - Vital Signs Vital signs: Temp Pulse Resp BP Pulse Ox 97.8 F 70 20 102/63 99 08/03/19 03:12 08/03/19 03:12 08/02/19 21:08 08/03/19 03:12 08/03/19 03:12 - Laboratory Result Diagrams: 08/02/19 21:42 08/02/19 21:42 Laboratory results interpreted by me: 08/02/19 08/02/19 08/02/19 21:42 21:42 22:21 RDW 14.2 H Alkaline Phosphatase 135 H Urine Ketones Urine Nitrite POSITIVE H Ur Leukocyte Esterase TRACE H Urine Ascorbic Acid 40 H 08/03/19 01:43 RDW Alkaline Phosphatase Urine Ketones TRACE H Urine Nitrite POSITIVE H Ur Leukocyte Esterase TRACE H Urine Ascorbic Acid 40 H Discharge - Discharge Clinical Impression: Left flank pain, Nephrolithiasis Abdominal pain Qualifiers: Abdominal location: unspecified location Qualified Code(s): R10.9 - Unspecified abdominal pain UTI (urinary tract infection) Qualifiers: Urinary tract infection type: site unspecified Hematuria presence: without hematuria Qualified Code(s): N39.0 - Urinary tract infection, site not specified Condition: Stable Disposition: HOME, SELF-CARE Additional Instructions: Your urinalysis shows an infection, in addition to this based on your symptoms I suspect you also passed a kidney stone tonight. You have a few small remaining kidney stones in the kidney but no current passing stones are seen. Take the antibiotics as prescribed, take the pain medication and nausea medication if needed, you can combine 600 mg of ibuprofen every 6 hours with this as needed. Drink plenty of fluids and rest. Follow-up with primary care and to the urology referral listed below. Return if you worsen including vomiting, fever, severe worsening pain, or any other concerning symptoms. [facility] [address] [place] [address] [phone] [facility] [address] [place], [place] [id number] Jasper Ramirez MD Doctor in [place], [place] Address: [facility] [address] [place] [address] Prescriptions: Cephalexin Monohydrate [Keflex 500 mg Capsule] 500 mg PO BID #14 capsule Oxycodone HCl/Acetaminophen [Percocet 5-325 mg Tablet] 1 - 2 tab PO TID #12 tablet Ondansetron [Zofran Odt 4 mg Tablet] 1 - 2 tab PO Q4H PRN #15 tab.rapdis PRN Reason: For Nausea/Vomiting Forms: Return to Work
[2019-08-02 22:11] LABS: ABSOLUTE EOSINOPHILS # (AUTO) 0.3 10^3/uL (0.0-0.6); ABSOLUTE LYMPHOCYTES (AUTO) 2.7 10^3/uL (0.5-4.7); ABSOLUTE MONOCYTES (AUTO) 0.6 10^3/uL (0.1-1.4); ABSOLUTE NEUT (AUTO) 4.7 10^3/uL (1.7-8.2); BASOPHILS % (AUTO) 0.6 % (0-2); HEMATOCRIT 36.2 % (36.0-47.0); HEMOGLOBIN 12.4 g/dL (12.0-15.5); LYMPHOCYTES % (AUTO) 32.3 % (13-45); MEAN CORPUSCULAR HEMOGLOBIN 29.9 pg (27.0-33.4); MEAN CORPUSCULAR HGB CONC 34.1 g/dL (32.0-36.0); MEAN CORPUSCULAR VOLUME 88 fl (80-97); MONOCYTES % (AUTO) 7.6 % (3-13); PLATELET COUNT 246 10^3/uL (150-450); RED BLOOD COUNT 4.13 10^6/uL (3.72-5.28); RED CELL DISTRIBUTION WIDTH 14.2 % (11.5-14.0); SEGMENTED NEUTROPHILS % (AUTO) 56.5 % (42-78); TOTAL CELLS COUNTED % (AUTO) 100 %; WHITE BLOOD COUNT 8.4 10^3/uL (4.0-10.5)
[2019-08-02 22:15] LABS: ALKALINE PHOSPHATASE 135 U/L (38-126); ANION GAP 9 (5-19); ASPARTATE AMINO TRANSFERASE 22 U/L (14-36); BILIRUBIN,DIRECT 0.1 mg/dL (0.0-0.4); BILIRUBIN,TOTAL 0.3 mg/dL (0.2-1.3); BLOOD UREA NITROGEN 15 mg/dL (7-20); CARBON DIOXIDE 24 mmol/L (22-30); CHLORIDE 105 mmol/L (98-107); GLUCOSE 93 mg/dL (75-110); POTASSIUM 4.3 mmol/L (3.6-5.0); TOTAL PROTEIN 6.7 g/dL (6.3-8.2)
[2019-08-02 23:22] LABS: AMORPHOUS SEDIMENT,URINE TRACE /HPF; APPEARANCE,URINE CLOUDY; BILIRUBIN,URINE NEGATIVE (NEGATIVE); COLOR,URINE YELLOW; GLUCOSE, URINE NEGATIVE (NEGATIVE); KETONES,URINE NEGATIVE (NEGATIVE); LEUKOCYTE ESTERASE,URINE TRACE (NEGATIVE); NITRITE,URINE POSITIVE (NEGATIVE); PROTEIN,URINE NEGATIVE (NEGATIVE); URINE SPECIFIC GRAVITY 1.016; UROBILINOGEN,URINE NEGATIVE mg/dL (<2.0)
[2019-08-03] MEDS ORDERED: HYDROMORPHONE HCL INJ/PF 2 MG/ML AMPULE IV ONE (00:15)
[2019-08-03] MEDS ORDERED: DIPHENHYDRAMINE HCL 50 MG/ML VIAL IV ONE (00:15)
--- NOTE | 2019-08-03 01:49 | RADIOLOGY REPORT (SQ) ---
CT ABDOMEN PELVIS WITHOUT IV CONTRAST EXAM DATE: 08/03/2019 12:15 AM CDT HISTORY: Left flank pain. COMPARISON: 05/05/2019 TECHNIQUE: CT scan of the abdomen and pelvis was performed without IV contrast. This exam was performed according to our departmental dose-optimization program, which includes automated exposure control, adjustment of the mA and/or kV according to patient size and/or use of iterative reconstruction technique. FINDINGS: The lung bases are clear. No pleural or pericardial effusions. The gallbladder is contracted, limiting evaluation. The liver, spleen, pancreas, adrenal glands, and right kidney are normal. There are tiny nonobstructing stones in the left kidney. No hydronephrosis. Bilateral tubal ligation clips are noted. The appendix is not visualized. No small bowel obstruction or acute diverticulitis. No intraperitoneal free fluid or free air is seen. The aorta is normal caliber. The osseous structures are intact. IMPRESSION: Tiny nonobstructing stones in the left kidney. No hydronephrosis.
[2019-08-03 02:02] LABS: APPEARANCE,URINE SLIGHTLY-CLOUDY; BILIRUBIN,URINE NEGATIVE (NEGATIVE); COLOR,URINE YELLOW; GLUCOSE, URINE NEGATIVE (NEGATIVE); KETONES,URINE TRACE mg/dL (NEGATIVE); LEUKOCYTE ESTERASE,URINE TRACE (NEGATIVE); NITRITE,URINE POSITIVE (NEGATIVE); PROTEIN,URINE NEGATIVE (NEGATIVE); URINE SPECIFIC GRAVITY 1.027; UROBILINOGEN,URINE NEGATIVE mg/dL (<2.0)
[2019-08-03] MEDS ORDERED: CEFTRIAXONE 1 GM/D5W RTU 1 GM/50 ML RTUPB IV ONE (02:07)
[2019-08-03] MEDS ORDERED: ONDANSETRON ODT 4 MG TAB (6 TAB/ER DISP) PO PRN (02:21)
[2019-08-03] MEDS ORDERED: HYDROCODONE/ACETAMINOPHEN 5-325 MG (6 TAB/ER DISP) PO PRN (02:21)
[2019-08-03 03:17] VITALS: BP 102/63
== END 2019-08-03 03:17 | disposition home or self-care (01) ==
LOC: ER 20:57
DX: N20.0 Calculus of kidney (principal); N39.0 Urinary tract infection, site not specified; J45.909 Unspecified asthma, uncomplicated; Z88.0 Allergy status to penicillin
CPT/HCPCS: 36415; 87086; 85025; 81025; 87088; 80053; 81001; 87186; 74176; J1200; J1885; J1170 ×2; J2405; J7030; J0696; 51701; 96361; 96365; 96375; 96376; 99284